=== PATIENT | male | born 1985 | race Caucasian/White ===

== ENCOUNTER 2018-03-20 10:55 | Inpatient (IN) ==
[2018-03-20] MEDS ORDERED: Ondansetron 4 MG/2 ML VIAL IVP ONE ×3 (11:06→14:39)
--- NOTE | 2018-03-20 11:20 | Emergency Department Note ---
Disposition Clinical Impression: Diaphoresis Abdominal pain Qualifiers: Abdominal location: unspecified location Qualified Code(s): R10.9 - Unspecified abdominal pain Nausea and vomiting Qualifiers: Vomiting type: unspecified Vomiting Intractability: unspecified Qualified Code( s): R11.2 - Nausea with vomiting, unspecified Chest pain Qualifiers: Chest pain type: unspecified Qualified Code(s): R07.9 - Chest pain, unspecified Disposition: Admitted As Inpatient Condition: Fair General Adult HPI - General Chief complaint: ED Abdominal Pain Stated complaint: tick bite on genitals Time Seen by Provider: 03/20/18 11:07 Source: patient Limitations: no limitations - History of Present Illness Pain Scale: 0 - Related Data Home Medications Medication Instructions Recorded Confirmed Doxycycline Hyclate [Doxycycline 100 mg PO BID 03/20/18 03/20/18 Hyclate] Lisinopril [Zestril] 10 mg PO DAILY 03/20/18 03/20/18 Naltrexone Microspheres [Vivitrol] 1 each IJ QMONTH 03/20/18 03/20/18 Pantoprazole Sodium [Protonix] 40 mg PO DAILY 03/20/18 03/20/18 Sertraline [Zoloft] 50 mg PO DAILY 03/20/18 03/20/18 Allergies Allergy/AdvReac Type Severity Reaction Status Date / Time promethazine [From Phenergan] AdvReac Anxiety Verified 03/20/18 15:25 Past Medical History - Past Medical History Medical history: Reports: non-contributory, hypertension Surgical history: Reports: other (Patient has had a previous neck fracture with cadaver bone placed in C6.) Psychiatric history: Reports: anxiety, depression - Social History Smoking Status: Current every day smoker Smokeless Tobacco Status: No Alcohol use: Reports: heavy Drug use: Reports: marijuana, prescription drug abuse Physical Exam - General Limitations: no limitations General appearance: alert, in no apparent distress Course Vital Signs Temperature 97.5 F L 03/20/18 10:59 Pulse Rate 70 03/20/18 10:59 Respiratory Rate 18 03/20/18 10:59 Blood Pressure 129/106 03/20/18 10:59 O2 Sat by Pulse Oximetry 99 03/20/18 10:59 Temperature 98.4 F 03/20/18 17:12 Pulse Rate 63 03/20/18 17:12 Respiratory Rate 16 03/20/18 17:12 Blood Pressure 136/79 03/20/18 17:12 O2 Sat by Pulse Oximetry 94 03/20/18 17:35 Oxygen Delivery Oxygen Delivery Room Air Medical Decision Making - Lab Data Result diagrams: 03/20/18 11:40 03/20/18 11:40 Lab Results 03/20/18 03/20/18 03/20/18 Range/Units 11:40 11:40 11:40 WBC 18.5 H (4.3-11.1) K/mcL RBC 4.48 (4.19-5.50) M/mcL Hgb 15.4 (12.9-16.9) g/dL Hct 42.5 (37.5-50.1) % MCV 94.9 (83.0-100.0) fL MCH 34.4 H (28.0-33.3) pg MCHC 36.2 H (31.6-35.5) g/dL RDW 11.7 (11.5-14.5) % Plt Count 300 (140-400) K/mcL MPV 9.1 L (9.4-12.4) fL Immature Gran % 0.5 (0-4) % Seg Neutrophils % 88.3 % Lymphocytes % 5.9 % Monocytes % 4.6 % Eosinophils % 0.4 % Basophils % 0.3 % Neutrophils # 16.3 H (1.6-8.9) K/mcL Lymphocytes # 1.1 (0.6-4.6) K/mcL Monocytes # 0.9 (0.0-1.3) K/mcL Eosinophils # 0.1 (0.0-0.6) K/mcL Basophils # 0.1 (0.0-0.2) K/mcL Nucleated RBCs/100 WBC 0.1 H (0) /100 WBC Sodium 139 (136-145) mEq/L Potassium 4.0 (3.5-5.1) mEq/L Chloride 106 (98-107) mEq/L Carbon Dioxide 23 (23-29) mEq/L BUN 16 (6-20) mg/dL Creatinine 0.76 (0.70-1.30) mg/dL Est GFR ( Amer) > 60 (> 60) Est GFR (Non-Af Amer) > 60 (> 60) BUN/Creatinine Ratio 21 (6-26) Glucose 127 H (70-105) mg/dL Calculated Osmolality 291 (280-300) Lactic Acid 1.7 (0.5-2.2) mmol/L Calcium 10.0 (8.6-10.3) mg/dL Total Bilirubin (0.3-1.0) mg/dL Direct Bilirubin (0.0-0.2) mg/dL Indirect Bilirubin (0.0-1.2) mg/dL AST (13-39) Units/L ALT (7-52) Units/L Alkaline Phosphatase (34-104) Units/L Troponin I < 0.03 (< 0.04) ng/mL Serum Total Protein (6.4-8.9) g/dL Albumin (3.5-5.7) g/dL Globulin (2.4-3.5) g/dL Albumin/Globulin Ratio (1.1-2.2) Lipase (11-82) Units/L 05//18 Range/Units 11:40 WBC (4.3-11.1) K/mcL RBC (4.19-5.50) M/mcL Hgb (12.9-16.9) g/dL Hct (37.5-50.1) % MCV (83.0-100.0) fL MCH (28.0-33.3) pg MCHC (31.6-35.5) g/dL RDW (11.5-14.5) % Plt Count (140-400) K/mcL MPV (9.4-12.4) fL Immature Gran % (0-4) % Seg Neutrophils % % Lymphocytes % % Monocytes % % Eosinophils % % Basophils % % Neutrophils # (1.6-8.9) K/mcL Lymphocytes # (0.6-4.6) K/mcL Monocytes # (0.0-1.3) K/mcL Eosinophils # (0.0-0.6) K/mcL Basophils # (0.0-0.2) K/mcL Nucleated RBCs/100 WBC (0) /100 WBC Sodium (136-145) mEq/L Potassium (3.5-5.1) mEq/L Chloride (98-107) mEq/L Carbon Dioxide (23-29) mEq/L BUN (6-20) mg/dL Creatinine (0.70-1.30) mg/dL Est GFR ( Amer) (> 60) Est GFR (Non-Af Amer) (> 60) BUN/Creatinine Ratio (6-26) Glucose (70-105) mg/dL Calculated Osmolality (280-300) Lactic Acid (0.5-2.2) mmol/L Calcium (8.6-10.3) mg/dL Total Bilirubin 0.4 (0.3-1.0) mg/dL Direct Bilirubin 0.0 (0.0-0.2) mg/dL Indirect Bilirubin 0.4 (0.0-1.2) mg/dL AST 16 (13-39) Units/L ALT 12 (7-52) Units/L Alkaline Phosphatase 81 (34-104) Units/L Troponin I (< 0.04) ng/mL Serum Total Protein 7.8 (6.4-8.9) g/dL Albumin 4.9 (3.5-5.7) g/dL Globulin 2.9 (2.4-3.5) g/dL Albumin/Globulin Ratio 1.7 (1.1-2.2) Lipase 11 (11-82) Units/L Attestation Statement - Attestation Attestation: I examined this patient and my medical decision-making was reviewed with the [employer]/PA/Advanced Practice Nurse/Resident Physician. I agree with the documented findings, disposition and treatment plan as described except to the extent set forth below. I did see the patient spoke with him and reviewed the previous record. Does have a history of overdose however set the patient said he has not tried to end his life in the past. Has not used any substances or alcohol the last 40 days. He does have vomiting as well as chest pain and abdominal pain and we will pursue further evaluation with laboratory evaluation as well as CT scanning. Patient is initially seemed cyanotic but at this point oxygen saturation 98% on room air. Patient has had several episodes of emesis and see evidence arrived 1120 I did review the patient's EKG showing sinus bradycardia with a rate of 47 bpm and evidence of some possible early re-pole and prominent T waves across the anterior precordium and we are waiting on results of our testing for electrolytes, troponin as well as CTA imaging of the chest and abdomen and pelvis. Patient receiving IV fluids. 1153 The patient did have leukocytosis, imaging is negative, he still looks poor and does have significant abdominal pain as well as diaphoresis. Patient received Protonix IV as well patient will be admitted. He has been seen by the hospitalist. [id number]
[2018-03-20] MEDS ORDERED: 0.9 % Sodium Chloride 1,000 ML IVC ONE (11:26)
[2018-03-20] MEDS ORDERED: Isovue-370 500 ML INFUS..BTL IV ONE (11:27)
--- NOTE | 2018-03-20 11:33 | Emergency Department Note ---
Disposition Clinical Impression: Diaphoresis Abdominal pain Qualifiers: Abdominal location: generalized Qualified Code(s): R10.84 - Generalized abdominal pain Nausea and vomiting Qualifiers: Vomiting type: cyclical vomiting Vomiting Intractability: intractable Qualified Code(s): G43.A1 - Cyclical vomiting, intractable Chest pain Qualifiers: Chest pain type: unspecified Qualified Code(s): R07.9 - Chest pain, unspecified Disposition: Admitted As Inpatient Condition: Fair Time of Disposition: 14:40 General Adult HPI - General Chief complaint: ED Abdominal Pain Stated complaint: tick bite on genitals Time Seen by Provider: 03/20/18 11:07 Source: patient Limitations: no limitations Nursing Notes Reviewed: Yes Vital Signs Reviewed: Yes - History of Present Illness HPI Narrative: Patient is a 32-year-old male that presents to the emergency department for nausea vomiting, chest pain and abdominal pain. Patient states that he has had multiple tick bites on his left leg, penis and shoulders. Patient states that his first tick bite was approximately 2 weeks ago. States that he has been on some sort of antibiotic that starts with a "D" but is unsure the exact name. Patient states that he has not been feeling well over the past couple weeks however his acute symptoms started earlier today and have been getting worse. States that he woke up feeling nauseated and sweaty. Patient also reports that he has been having abdominal pain and chest pain associated with his symptoms. He states that his chest pain is located in the center of his chest. Denies any radiation of his chest pain. Patient does report shortness of breath, nausea and vomiting associated with his chest pain. He states that the pain began this morning.Patient describes the pain as pressure. Patient denies recent drug use. Pain Scale: 0 - Related Data Home Medications Medication Instructions Recorded Confirmed Doxycycline Hyclate [Doxycycline 100 mg PO BID 03/20/18 03/20/18 Hyclate] Lisinopril [Zestril] 10 mg PO DAILY 03/20/18 03/20/18 Naltrexone Microspheres [Vivitrol] 1 each IJ QMONTH 03/20/18 03/20/18 Pantoprazole Sodium [Protonix] 40 mg PO DAILY 03/20/18 03/20/18 Sertraline [Zoloft] 50 mg PO DAILY 03/20/18 03/20/18 Allergies Allergy/AdvReac Type Severity Reaction Status Date / Time promethazine [From Phenergan] AdvReac Anxiety Verified 03/20/18 15:25 All systems ED: reviewed and negative except as stated. Constitutional: Reports: other (diaph) Cardiovascular: Reports: chest pain Respiratory: Reports: dyspnea Gastrointestinal: Reports: abdominal pain, nausea, vomiting Past Medical History - Past Medical History Medical history: Reports: non-contributory, hypertension Surgical history: Reports: other (Patient has had a previous neck fracture with cadaver bone placed in C6.) Psychiatric history: Reports: anxiety, depression - Social History Smoking Status: Current every day smoker Smokeless Tobacco Status: No Alcohol use: Reports: heavy Drug use: Reports: marijuana, prescription drug abuse Physical Exam - General Limitations: no limitations General appearance: alert, in distress, other (diaphoretic) - Head Head exam: atraumatic, normocephalic - Eye Eye exam: Present: normal appearance, EOMI - Neck Neck exam: Present: normal inspection, full ROM, trachea midline - Respiratory Respiratory exam: Present: normal lung sounds bilaterally. Absent: respiratory distress, wheezes - Cardiovascular Cardiovascular exam: Present: regular rate, normal rhythm, normal heart sounds, +S1, +S2 - Abdominal Exam Abdominal exam: Present: soft, Non-Tender, normal bowel sounds. Absent: distention, guarding, rigidity - Male exam: Present: normal testicular lie, circumcised, other (Mild swelling of the penis. Appears to be a lesion on the shat of the penis) - Extremities Exam Extremities exam: Present: other (Appears to have multiple small scabs on his upper thigh) - Back Exam Back exam: Present: normal inspection, full ROM - Neurological Exam Neurological exam: Present: alert, oriented X3 - Psychiatric Psychiatric exam: Present: normal affect, normal mood - Skin Skin exam: Present: warm, dry, intact Course Vital Signs Temperature 97.5 F L 03/20/18 10:59 Pulse Rate 70 03/20/18 10:59 Respiratory Rate 18 03/20/18 10:59 Blood Pressure 129/106 03/20/18 10:59 O2 Sat by Pulse Oximetry 99 03/20/18 10:59 Temperature 98.3 F 03/20/18 19:27 Pulse Rate 57 03/20/18 19:27 Respiratory Rate 14 03/20/18 19:27 Blood Pressure 129/71 03/20/18 19:27 O2 Sat by Pulse Oximetry 99 03/20/18 19:27 Oxygen Delivery Oxygen Delivery Room Air Medical Decision Making - MDM Narrative Medical decision making narrative: Due to the patient presenting with chest pain, abdominal pain, nausea and vomiting there is concern for possible intra-abdominal vs possible cardiac related pathology we will obtain basic laboratory testing including a CBC, BMP, troponin, EKG as well as CTAs of the chest abdomen and pelvis. Patient does have an elevated white count of 18.5. The remainder of his laboratory testing was unremarkable. The CT scans of the abdomen and pelvis did not show any acute findings at this time. However due to the patient still having significant abdominal pain, nausea and vomiting as well as having a generalized ill appearance I feel that it is most appropriate that the patient be admitted to the hospital for further evaluation and management. I called and spoke with the admitting hospitalist Tremayne spann who has accepted the patient to their service. The patient will be admitted to the hospital at this time for further evaluation and management. - Medical Records Medical records reviewed: Yes I reviewed the patient's medical records. - Lab Data Lab results reviewed: Yes I reviewed the patient's lab results. Result diagrams: 03/20/18 11:40 03/20/18 11:40 Lab Results 03/20/18 03/20/18 03/20/18 Range/Units 11:40 11:40 11:40 WBC 18.5 H (4.3-11.1) K/mcL RBC 4.48 (4.19-5.50) M/mcL Hgb 15.4 (12.9-16.9) g/dL Hct 42.5 (37.5-50.1) % MCV 94.9 (83.0-100.0) fL MCH 34.4 H (28.0-33.3) pg MCHC 36.2 H (31.6-35.5) g/dL RDW 11.7 (11.5-14.5) % Plt Count 300 (140-400) K/mcL MPV 9.1 L (9.4-12.4) fL Immature Gran % 0.5 (0-4) % Seg Neutrophils % 88.3 % Lymphocytes % 5.9 % Monocytes % 4.6 % Eosinophils % 0.4 % Basophils % 0.3 % Neutrophils # 16.3 H (1.6-8.9) K/mcL Lymphocytes # 1.1 (0.6-4.6) K/mcL Monocytes # 0.9 (0.0-1.3) K/mcL Eosinophils # 0.1 (0.0-0.6) K/mcL Basophils # 0.1 (0.0-0.2) K/mcL Nucleated RBCs/100 WBC 0.1 H (0) /100 WBC Sodium 139 (136-145) mEq/L Potassium 4.0 (3.5-5.1) mEq/L Chloride 106 (98-107) mEq/L Carbon Dioxide 23 (23-29) mEq/L BUN 16 (6-20) mg/dL Creatinine 0.76 (0.70-1.30) mg/dL Est GFR ( Amer) > 60 (> 60) Est GFR (Non-Af Amer) > 60 (> 60) BUN/Creatinine Ratio 21 (6-26) Glucose 127 H (70-105) mg/dL Calculated Osmolality 291 (280-300) Lactic Acid 1.7 (0.5-2.2) mmol/L Calcium 10.0 (8.6-10.3) mg/dL Total Bilirubin (0.3-1.0) mg/dL Direct Bilirubin (0.0-0.2) mg/dL Indirect Bilirubin (0.0-1.2) mg/dL AST (13-39) Units/L ALT (7-52) Units/L Alkaline Phosphatase (34-104) Units/L Troponin I < 0.03 (< 0.04) ng/mL Serum Total Protein (6.4-8.9) g/dL Albumin (3.5-5.7) g/dL Globulin (2.4-3.5) g/dL Albumin/Globulin Ratio (1.1-2.2) Lipase (11-82) Units/L 03/20/18 Range/Units 11:40 WBC (4.3-11.1) K/mcL RBC (4.19-5.50) M/mcL Hgb (12.9-16.9) g/dL Hct (37.5-50.1) % MCV (83.0-100.0) fL MCH (28.0-33.3) pg MCHC (31.6-35.5) g/dL RDW (11.5-14.5) % Plt Count (140-400) K/mcL MPV (9.4-12.4) fL Immature Gran % (0-4) % Seg Neutrophils % % Lymphocytes % % Monocytes % % Eosinophils % % Basophils % % Neutrophils # (1.6-8.9) K/mcL Lymphocytes # (0.6-4.6) K/mcL Monocytes # (0.0-1.3) K/mcL Eosinophils # (0.0-0.6) K/mcL Basophils # (0.0-0.2) K/mcL Nucleated RBCs/100 WBC (0) /100 WBC Sodium (136-145) mEq/L Potassium (3.5-5.1) mEq/L Chloride (98-107) mEq/L Carbon Dioxide (23-29) mEq/L BUN (6-20) mg/dL Creatinine (0.70-1.30) mg/dL Est GFR ( Amer) (> 60) Est GFR (Non-Af Amer) (> 60) BUN/Creatinine Ratio (6-26) Glucose (70-105) mg/dL Calculated Osmolality (280-300) Lactic Acid (0.5-2.2) mmol/L Calcium (8.6-10.3) mg/dL Total Bilirubin 0.4 (0.3-1.0) mg/dL Direct Bilirubin 0.0 (0.0-0.2) mg/dL Indirect Bilirubin 0.4 (0.0-1.2) mg/dL AST 16 (13-39) Units/L ALT 12 (7-52) Units/L Alkaline Phosphatase 81 (34-104) Units/L Troponin I (< 0.04) ng/mL Serum Total Protein 7.8 (6.4-8.9) g/dL Albumin 4.9 (3.5-5.7) g/dL Globulin 2.9 (2.4-3.5) g/dL Albumin/Globulin Ratio 1.7 (1.1-2.2) Lipase 11 (11-82) Units/L - Radiology Data Radiology results reviewed: Yes I reviewed the patient's radiology results. Abdomen/Pelvis CTA 03/20/18 11:27 IMPRESSION: No evidence of acute pulmonary embolism or acute aortic disease in the chest or abdomen. No evidence of aneurysm or dissection. No evidence of other acute abnormalities in the chest, abdomen or pelvis. D/ / 03/20/2018 13:31:26 Aline Mustafa MD / angie Interpreting Provider: Aline Mustafa MD Chest CTA 03/20/18 11:27 IMPRESSION: No evidence of acute pulmonary embolism or acute aortic disease in the chest or abdomen. No evidence of aneurysm or dissection. No evidence of other acute abnormalities in the chest, abdomen or pelvis. D/ / 03/20/2018 13:31:26 Aline Mustafa MD / angie Interpreting Provider: Aline Mustafa MD - EKG Data EKG #1 EKG attestation: Yes I reviewed and interpreted this EKG. EKG results narrative: EKG showed a sinus bradycardia at a rate of 47 bpm, SD interval 138, QRS duration of 110, QTc of 420 with a normal axis. There is evidence of incomplete right bundle. No Evidence of stemi on EKG. There are some peaked T waves in lead V3, V4 and V5. This is compared to previous EKG on 01/01/18 which showed a sinus tachycardia at rate of 117 bpm.
[2018-03-20 11:59] LABS: Basophils # 0.1 K/mcL (0.0-0.2); Basophils % 0.3 %; Eosinophils # 0.1 K/mcL (0.0-0.6); Eosinophils % 0.4 %; Hematocrit 42.5 % (37.5-50.1); Hemoglobin 15.4 g/dL (12.9-16.9); Immature Granulocytes % 0.5 % (0-4); Lymphocytes # 1.1 K/mcL (0.6-4.6); Lymphocytes % 5.9 %; Mean Corpuscular HGB Conc 36.2 g/dL (31.6-35.5); Mean Corpuscular Hemoglobin 34.4 pg (28.0-33.3); Mean Corpuscular Volume 94.9 fL (83.0-100.0); Mean Platelet Volume 9.1 fL (9.4-12.4); Monocytes # 0.9 K/mcL (0.0-1.3); Monocytes % 4.6 %; Neutrophils # 16.3 K/mcL (1.6-8.9); Nucleated Red Blood Cells 0.1 /100 WBC (0); Platelet Count 300 K/mcL (140-400); Red Blood Count 4.48 M/mcL (4.19-5.50); Red Cell Distribution Width 11.7 % (11.5-14.5); Segmented Neutrophils % 88.3 %
[2018-03-20 12:15] LABS: Troponin I < 0.03 ng/mL (< 0.04)
[2018-03-20 12:21] LABS: BUN/Creatinine Ratio 21 (6-26); Blood Urea Nitrogen 16 mg/dL (6-20); Carbon Dioxide 23 mEq/L (23-29); Chloride 106 mEq/L (98-107); Glucose 127 mg/dL (70-105); Osmolality,Calculated 291 (280-300); Sodium 139 mEq/L (136-145); eGFR For African Americans > 60 (> 60); eGFR For Non-African Americans > 60 (> 60)
[2018-03-20 12:22] LABS: Albumin 4.9 g/dL (3.5-5.7); Albumin/Globulin Ratio 1.7 (1.1-2.2); Bilirubin,Total 0.4 mg/dL (0.3-1.0); Globulin 2.9 g/dL (2.4-3.5); Total Protein 7.8 g/dL (6.4-8.9)
[2018-03-20 12:46] LABS: Bilirubin,Indirect 0.4 mg/dL (0.0-1.2)
[2018-03-20] MEDS ORDERED: Ondansetron 4 MG/2 ML VIAL ONE (12:54)
[2018-03-20] MEDS ORDERED: Hyoscyamine SL 0.125 MG TAB.SUBL SL ONE (14:42)
[2018-03-20] MEDS ORDERED: Pantoprazole 40 MG VIAL IVP ONE (15:57)
[2018-03-20] MEDS ORDERED: [UNRECOGNIZED DRUG - OTHER] IM SCH (16:45)
[2018-03-20] MEDS: cefTRIAXone 2,000 MG in Water for inj. (sterile) 20 ML 20 ML IVP SCH (17:25)
[2018-03-20] MEDS: 0.9 % Sodium Chloride 1,000 ML IVC SCH (17:26)
[2018-03-20] MEDS ORDERED: Naloxone 0.4 MG/ML INJ IVP PRN (18:57)
[2018-03-20] MEDS ORDERED: Metoclopramide 10 MG/2 ML VIAL IVP ONE (19:00)
--- NOTE | 2018-03-20 19:21 | Internal Med History&Physical ---
<SonnyTremayne Ramirez - Last Filed: 03/20/18 21:25> Date of Encounter: 03/20/18 Time of Encounter: 16:30 Internal Medicine - H&P: HPI Chief complaint: Abdominal pain, N/V, fever, CP Admitted From: Emergency Dept Plans for Post Hospital Care: Home History of present illness: Mr. Bynum is a 32 year old male w/PMH of HTN, anxiety, depression, and hx of prescription drug abuse presents from the ED w/CC of abdominal pain, nausea, vomiting, fever, chills, muscle aches, headache, night sweats, and dizziness for the past two weeks that have become progressively worse. Pt. reports that [place] and has 10-20 tick bites on his back, shoulder, bilateral legs, and underside of his penis. No alleviating factors. PT. 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 Pt. denies recent drug use and states that is a recovering addict of prescription drug abuse and states that he cannot have any opioids or pain relievers other than Tylenol or Ibuprofen. Currently takes Vivitrol shots monthly. Pt. reports SOB, weakness, and fatigue but denies changes in vision, unusual bleeding, changes in vision, unusual rashes, cough, chest congestion, diarrhea, constipation, pre-syncope, or syncope. Past Med Surg Social Fam HX - Past Medical History Source: patient, old records reviewed, obtained from family Medical history: hypertension Psychiatric history: anxiety, depression - Past Surgical History Surgical History: other (Patient has had a previous neck fracture with cadaver bone placed in C6.) - Social History Smoking Status: Current every day smoker Packs per day: 1 PPD Smokeless Tobacco Status: No Alcohol use: heavy Drug use: marijuana, prescription drug abuse (Hx of addiction. Currently takes monthly Vivitrol injections.) Current living situation: Home, With Family Activity Level: Independent ambulation Recent Out of Country Travel Within the Last 8 Weeks: No Exposure or Possible Exposure to Illness During Travel: No - Family History Mother Race: Family Member Ethnicity: Non- Living Status: Still Living Hx Family Cardiac Disorders: Yes (CVA) Hx Family Neurologic Disorders: Yes (CVA) Hx Family Psychosocial Disorders: Yes (Depression) Father Race: Family Member Ethnicity: Non- Living Status: Still Living Hx Family Cardiac Disorders: Yes (HTN) Brother Race: Family Member Ethnicity: Non- Living Status: Still Living Hx Family Psychosocial Disorders: Yes (Depression) Sister Race: Family Member Ethnicity: Non- Living Status: Still Living Hx Family Medical Disorders: No Internal Medicine - H&P: Meds Doxycycline Hyclate [Doxycycline Hyclate] 100 mg PO BID 03/20/18 [History] Lisinopril [Zestril] 10 mg PO DAILY 03/20/18 [History] Naltrexone Microspheres [Vivitrol] 1 each IJ QMONTH 03/20/18 [History] Pantoprazole Sodium [Protonix] 40 mg PO DAILY 03/20/18 [History] Sertraline [Zoloft] 50 mg PO DAILY 03/20/18 [History] 3 Allergy/AdvReac Type Severity Reaction Status Date / Time promethazine [From Phenergan] AdvReac Anxiety Verified 03/20/18 15:25 All Systems PM: A 10-system review of systems was performed and is negative for pertinent findings except as documented above in the HPI. - Constitutional Constitutional: as per HPI, chills, fatigue, fever(s), night sweats, weakness - EENT Eyes: no change in vision, no discharge, no pain, no photophobia Ears: no ear discharge, no ear pain, no tinnitus Nose, mouth and throat: no dysphagia, no nasal discharge, no neck pain, no sore throat - Breasts Breasts: as per HPI - Cardiovascular Cardiovascular ROS IM: as per HPI, chest pain, dyspnea, dyspnea on exertion, no diaphoresis, no lightheadedness, no palpitations, no syncope - Respiratory Respiratory: as per HPI, dyspnea, dyspnea on exertion, no cough, no wheezing, no excessive phlegm production - Gastrointestinal Gastrointestinal: as per HPI, abdominal pain, nausea, vomiting, no diarrhea, no hematemesis, no hematochezia, no melena - Genitourinary Genitourinary ROS male: as per HPI - Musculoskeletal Musculoskeletal ROS IM: as per HPI, arthralgias, muscle weakness, no numbness, no tingling - Integumentary Integumentary IM: as per HPI, erythema (Around multiple tick bite sites), sores (Multiple tick bites on back, shoulder, bilateral legs, and underside of penis) , no rash, no unusual bruising - Neurological Neurological ROS: as per HPI, dizziness, weakness, no confusion, no convulsions , no focal weakness, no numbness, no tingling, no tremor(s) - Psychiatric Psychiatric: as per HPI, anxiety, depression - Endocrine Endocrine IM: as per HPI - Hematologic/Lymphatic Hematologic/Lymphatic: no easy bruising - Allergic/Immunologic Allergic/Immunologic: as per HPI - Constitutional Vitals: Temp Pulse Resp BP Pulse Ox 98.4 F 63 16 136/79 94 03/20/18 17:12 03/20/18 17:12 03/20/18 17:12 03/20/18 17:12 03/20/18 17:35 General appearance: Present: cooperative, A&O X 3, severe distress (N/V/Fever/ Chills), underweight, answers questions appropriately - Head Head exam: Present: atraumatic, normocephalic - Eye Eye exam: Present: PERRL, conjuntiva pink, sclera anicteric Pupils: Present: PERRL - ENT ENT exam: Present: normal exam - Neck Neck exam general surgery: Present: normal inspection, supple, trachea midline. Absent: lymphadenopathy - Respiratory Respiratory exam: Present: CTAB. Absent: accessory muscle use, rales, rhonchi, wheezes - Cardiovascular Cardiovascular exam: Present: bradycardia - GI/Abdominal GI/Abdominal exam: Present: normal bowel sounds, soft, tenderness, no peritoneal signs. Absent: distended - Rectal Rectal exam: Present: deferred - Additional comments: exam deferred. - Extremities Exam Extremities exam: Present: warm, radial pulses palpable and symmetrical. Absent : calf tenderness, cyanotic, pedal edema - Back Exam Back exam: Present: normal inspection - Neurological Exam Neurological exam: Present: CN II-XII intact, oriented X3, no focal deficits. Absent: pronater drift, facial droop, speech deficit - Psychiatric Psychiatric exam: Present: anxious - Skin Skin exam: Present: dry, erythema (Around multiple tick bite sites on back, shoulder, bilateral legs, and underside of penis), intact Internal Med - H&P Results - Labs CBC & Chem 7: 03/20/18 11:40 03/20/18 11:40 - EKG Data EKG shows normal: sinus rhythm Rate: bradycardia - EKG Data EKG comments: 03/20/18 19:38 EKG dated 01/01/18 shows sinus tachycardia with intraventricular conduction delay. EKG dated 03/20/18 shows sinus bradycardia with possible right ventricular conduction delay and possible left ventricular hypertrophy. - Diagnostic Studies Other Images Additional comments: Impressions Abdomen/Pelvis CTA 03/20/18 11:27 IMPRESSION: No evidence of acute pulmonary embolism or acute aortic disease in the chest or abdomen. No evidence of aneurysm or dissection. No evidence of other acute abnormalities in the chest, abdomen or pelvis. D/ / 03/20/2018 13:31:26 Aline Mustafa MD / angie Interpreting Provider: Aline Mustafa MD Chest CTA 03/20/18 11:27 IMPRESSION: No evidence of acute pulmonary embolism or acute aortic disease in the chest or abdomen. No evidence of aneurysm or dissection. No evidence of other acute abnormalities in the chest, abdomen or pelvis. D/ / 03/20/2018 13:31:26 Aline Mustafa MD / angie Interpreting Provider: Aline Mustafa MD - Assessment and plan (1) Abdominal pain Current Visit: Yes Status: Acute Assessment and plan: Acute abdominal pain accompanied by severe intractable nausea and vomiting. IVP Zofran Q4HR ordered. IVP Reglan 10 mg IVP Q6HR added d/t intractable N/V. Pt. states Reglan is helping. NPO w/ice chips only status for now. Will advance diet as tolerated once N/V under control. Monitor I&O. Alternating Tylenol 650 mg Q6HR PRN w/Motrin 600 mg 600 mg Q6HR PRN for fever and pain. Pt. not to have opioids or narcotic pain medications d/t addiction to prescription pain medications that he is currently taking monthly Vivitrol injections for. Qualifiers: Abdominal location: generalized Qualified Code(s): R10.84 - Generalized abdominal pain (2) Nausea and vomiting Current Visit: Yes Status: Acute Assessment and plan: Acute N/V for the past several days. Pt. and SO report that pt. was extremely nauseous w/vomiting 2 years ago w/Lyme dx. IVP Zofran started in ED w/little resolution. Reglan 10 mg IVP once ordered which patient states is helping. We will continue Reglan 10 mg IVP every 6 hours scheduled due to extreme nausea and vomiting. Zoloft held for now due to contraindicated interaction w/Reglan. Monitor I&O. IV 0.9 NS @ 125/HR d/t N/V over past week and possible dehydration. Qualifiers: Vomiting type: cyclical vomiting Vomiting Intractability: intractable Qualified Code(s): G43.A1 - Cyclical vomiting, intractable (3) Chest pain Current Visit: Yes Status: Acute Assessment and plan: Acute CP that pt. reports as generalized. Initial troponin <0.03. Will trend. Pt. placed on continuous telemetry for monitoring. Denies cardiac hx and no familial hx of [place]. Will monitor pt. and f/u labs. Qualifiers: Chest pain type: unspecified Qualified Code(s): R07.9 - Chest pain, unspecified (4) Fever with chills Current Visit: Yes Status: Acute Assessment and plan: Acute fever with chills. Tylenol 650 mg Q6HR PRN to be alternated w/Ibuprofen 600 mg Q6HR PRN for fever control. Rectal Tylenol ordered if pt. cannot keep PO Tylenol down d/t N/V. (5) HTN (hypertension) Current Visit: Yes Status: Chronic Assessment and plan: Hx of chronic HTN. Monitor pt. and VS. Continue pts. Lisinopril. Qualifiers: Hypertension type: essential hypertension Qualified Code(s): I10 - Essential (primary) hypertension (6) Hx of Lyme disease Current Visit: Yes Status: Resolved Assessment and plan: Pt. reports being diagnosed with Lyme disease 2 years ago. States current symptoms are identical to when he had Lyme disease previously. Lyme disease total antibody ordered stat. Monitor for results. (7) DVT prophylaxis Current Visit: Yes Status: Acute Assessment and plan: Lovenox 40 mg SQ 0600 daily for DVT prophylaxis. Monitor pt. for signs of bleeding. (8) Suspected Lyme disease Current Visit: Yes Status: Acute Assessment and plan: Acute suspected Lyme disease w/pt. reporting >20 tick bites over the past several weeks. On exam, pt. has 10-20 tick bite sites that are in various stages of healing on his back, right shoulder, bilateral legs, and underside of his penis. Pt. also reports he was diagnosed w/Lyme disease approximately two years ago w/same sx. Lyme disease total antibody ordered stat. Current WBC 18.5 on admission. Pt. does not currently meet sepsis criteria but will be monitored closely. Pt. started on IVPB ceftriaxone 2000 mg daily per Lyme disease treatment recommendations. IVP Zofran 4 mg every 4 when necessary with Reglan 10 mg IVP every 6 hours added for control of intractable nausea and vomiting. PO Tylenol 650 mg Q6HR PRN to be alternated w/PO Motrin 600 mg Q6HR PRN for fever control. Tylenol RC 650 mg Q6HR PRN ordered if pt. is unable to keep PO Tylenol down d/t N/V. Pt. discussed w/Dr. Coe who agrees w/plan of care. Pt. is high risk for further morbidity and infection d/t multiple tick bites, current sx, hx of previous Lyme disease, and risk factors. Inpatient - Time Spent With Patient Total time spent is greater than 50% in coordination of care (as documented) at patient's floor/unit and/or counseling patient: Greater than 35 minutes <Jonah Coe P - Last Filed: 03/20/18 21:43> Date of Encounter: 03/20/18 Internal Medicine - H&P: HPI History of present illness: Mr. Bynum is a 32 year old male All Systems PM: A 10-system review of systems was performed and is negative for pertinent findings except as documented above in the HPI. - Constitutional Vitals: Temp Pulse Resp BP Pulse Ox 98.3 F 57 14 129/71 99 03/20/18 19:27 03/20/18 19:27 03/20/18 19:27 03/20/18 19:27 03/20/18 19:27 Internal Med - H&P Results - Labs CBC & Chem 7: 03/20/18 11:40 03/20/18 11:40 Labs: Cardiac Enzymes 03/20/18 Range/Units 19:55 Troponin I < 0.03 (< 0.04) ng/mL - Attending Attestation I examined this patient and my medical decision-making was reviewed with the Resident Physician. I agree with the documented findings, disposition and treatment plan as described except to the extent set forth below. agree with above - Assessment and plan (1) Abdominal pain Current Visit: Yes Status: Acute Qualifiers: Abdominal location: generalized Qualified Code(s): R10.84 - Generalized abdominal pain (2) Nausea and vomiting Current Visit: Yes Status: Acute Qualifiers: Vomiting type: cyclical vomiting Vomiting Intractability: intractable Qualified Code(s): G43.A1 - Cyclical vomiting, intractable (3) Chest pain Current Visit: Yes Status: Acute Qualifiers: Chest pain type: unspecified Qualified Code(s): R07.9 - Chest pain, unspecified (4) Fever with chills Current Visit: Yes Status: Acute (5) HTN (hypertension) Current Visit: Yes Status: Chronic Qualifiers: Hypertension type: essential hypertension Qualified Code(s): I10 - Essential (primary) hypertension (6) DVT prophylaxis Current Visit: Yes Status: Acute (7) Hx of Lyme disease Current Visit: Yes Status: Resolved (8) Suspected Lyme disease Current Visit: Yes Status: Acute - Time Spent With Patient Total time spent is greater than 50% in coordination of care (as documented) at patient's floor/unit and/or counseling patient:
[2018-03-20] MEDS: Nicotine 14 MG PATCH.TD24 TD SCH (19:56)
[2018-03-20] MEDS: Ondansetron 4 MG/2 ML VIAL IVP SCH (19:57)
[2018-03-20] MEDS ORDERED: Ibuprofen 600 MG TABLET PO PRN (20:32)
[2018-03-20] MEDS ORDERED: Acetaminophen 650 MG RECTAL SUPP RC PRN (20:33)
[2018-03-21] MEDS: Metoclopramide 10 MG/2 ML VIAL IVP SCH ×3 (00:01→11:13)
[2018-03-21] MEDS: Ondansetron 4 MG/2 ML VIAL IVP SCH ×6 (00:01→20:51)
[2018-03-21] MEDS: 0.9 % Sodium Chloride 1,000 ML IVC SCH ×2 (01:35→04:27)
[2018-03-21 01:43] LABS: Alanine Aminotransferase 10 Units/L (7-52); Albumin 4.6 g/dL (3.5-5.7); Albumin/Globulin Ratio 1.5 (1.1-2.2); Alkaline Phosphatase 79 Units/L (34-104); Aspartate Amino Transferase 14 Units/L (13-39); BUN/Creatinine Ratio 16 (6-26); Bilirubin,Total 0.4 mg/dL (0.3-1.0); Blood Urea Nitrogen 10 mg/dL (6-20); Calcium 9.5 mg/dL (8.6-10.3); Carbon Dioxide 22 mEq/L (23-29); Chloride 107 mEq/L (98-107); Chol/HDL Ratio 3.9 (0-4.9); Cholesterol 170 mg/dL (< 200); Glucose 116 mg/dL (70-105); HDL Cholesterol 44 mg/dL (40-59); LDL Cholesterol,Calculated 114 mg/dL (0-99); Magnesium 1.8 mg/dL (1.6-2.6); Osmolality,Calculated 288 (280-300); Sodium 139 mEq/L (136-145); Total Protein 7.6 g/dL (6.4-8.9); Triglycerides 60 mg/dL (< 150); eGFR For African Americans > 60 (> 60); eGFR For Non-African Americans > 60 (> 60)
[2018-03-21 02:49] LABS: Basophils % 0.2 %; Hematocrit 39.9 % (37.5-50.1); Hemoglobin 14.3 g/dL (12.9-16.9); Immature Granulocytes % 0.5 % (0-4); Lymphocytes # 1.4 K/mcL (0.6-4.6); Lymphocytes % 11.4 %; Mean Corpuscular HGB Conc 35.8 g/dL (31.6-35.5); Mean Corpuscular Hemoglobin 34.4 pg (28.0-33.3); Mean Corpuscular Volume 95.9 fL (83.0-100.0); Mean Platelet Volume 9.5 fL (9.4-12.4); Monocytes # 0.8 K/mcL (0.0-1.3); Monocytes % 6.1 %; Platelet Count 331 K/mcL (140-400); Red Blood Count 4.16 M/mcL (4.19-5.50); Segmented Neutrophils % 81.8 %
[2018-03-21] MEDS: *HR* Enoxaparin 40 MG/0.4 ML SYRINGE SQ SCH (05:48)
[2018-03-21] MEDS: Pantoprazole 40 MG VIAL IVP SCH (08:19)
[2018-03-21] MEDS: Nicotine 14 MG PATCH.TD24 TD SCH (08:19)
--- NOTE | 2018-03-21 10:23 | Internal Med Progress Note ---
Date of Encounter: 03/21/18 Time of Encounter: 10:21 - Assessment and plan (1) Abdominal pain Current Visit: Yes Status: Acute Assessment and plan: Intractable abdominal pain Acute abdominal pain accompanied by severe intractable nausea and vomiting. IVP Zofran Q4HR ordered. IVP Reglan 10 mg IVP Q6HR added d/t intractable N/V. Pt. states Reglan is helping. NPO w/ice chips only status for now. Will advance diet as tolerated once N/V under control. Monitor I&O. Alternating Tylenol 650 mg Q6HR PRN w/Motrin 600 mg 600 mg Q6HR PRN for fever and pain. Pt. not to have opioids or narcotic pain medications d/t addiction to prescription pain medications that he is currently taking monthly Vivitrol injections for. - Advance diet as tolerated - Continue Rocephin Qualifiers: Abdominal location: generalized Qualified Code(s): R10.84 - Generalized abdominal pain (2) Fever with chills Current Visit: Yes Status: Acute Assessment and plan: Acute fever with chills. Tylenol 650 mg Q6HR PRN to be alternated w/Ibuprofen 600 mg Q6HR PRN for fever control. Rectal Tylenol ordered if pt. cannot keep PO Tylenol down d/t N/V. - Afebrile currently (3) Suspected Lyme disease Current Visit: Yes Status: Acute Assessment and plan: Acute suspected Lyme disease w/pt. reporting >20 tick bites over the past several weeks. On exam, pt. has 10-20 tick bite sites that are in various stages of healing on his back, right shoulder, bilateral legs, and underside of his penis. Pt. also reports he was diagnosed w/Lyme disease approximately two years ago w/same sx. Lyme disease total antibody ordered stat. Current WBC 18.5 on admission. Pt. does not currently meet sepsis criteria but will be monitored closely. Pt. started on IVPB ceftriaxone 2000 mg daily per Lyme disease treatment recommendations. IVP Zofran 4 mg every 4 when necessary with Reglan 10 mg IVP every 6 hours added for control of intractable nausea and vomiting. PO Tylenol 650 mg Q6HR PRN to be alternated w/PO Motrin 600 mg Q6HR PRN for fever control. Tylenol RC 650 mg Q6HR PRN ordered if pt. is unable to keep PO Tylenol down d/t N/V. Pt. discussed w/Dr. Coe who agrees w/plan of care. Pt. is high risk for further morbidity and infection d/t multiple tick bites, current sx, hx of previous Lyme disease, and risk factors. Inpatient 03/21: currently heart rate RRR, HR occasionally in 50s but there was previous notes that patient had bradycardia. (4) Nausea and vomiting Current Visit: Yes Status: Acute Assessment and plan: Acute N/V for the past several days. Pt. and SO report that pt. was extremely nauseous w/vomiting 2 years ago w/Lyme dx. IVP Zofran started in ED w/little resolution. Reglan 10 mg IVP once ordered which patient states is helping. We will continue Reglan 10 mg IVP every 6 hours scheduled due to extreme nausea and vomiting. Zoloft held for now due to contraindicated interaction w/Reglan. Monitor I&O. IV 0.9 NS @ 125/HR d/t N/V over past week and possible dehydration. Advance diet as tolerated Qualifiers: Vomiting type: cyclical vomiting Vomiting Intractability: intractable Qualified Code(s): G43.A1 - Cyclical vomiting, intractable (5) Chest pain Current Visit: Yes Status: Acute Assessment and plan: Acute CP that pt. reports as generalized. Initial troponin <0.03. Will trend. Pt. placed on continuous telemetry for monitoring. Denies cardiac hx and no familial hx of [place]. Will monitor pt. and f/u labs. Qualifiers: Chest pain type: unspecified Qualified Code(s): R07.9 - Chest pain, unspecified (6) HTN (hypertension) Current Visit: Yes Status: Chronic Assessment and plan: Hx of chronic HTN. Monitor pt. and VS. Continue pts. Lisinopril. Qualifiers: Hypertension type: essential hypertension Qualified Code(s): I10 - Essential (primary) hypertension (7) Hx of Lyme disease Current Visit: Yes Status: Resolved Assessment and plan: Pt. reports being diagnosed with Lyme disease 2 years ago. States current symptoms are identical to when he had Lyme disease previously. Lyme disease total antibody ordered stat. Monitor for results. Escalated therapy to Rocephin, will continue and monitor (8) DVT prophylaxis Current Visit: Yes Status: Acute Assessment and plan: Lovenox 40 mg SQ 0600 daily for DVT prophylaxis. Monitor pt. for signs of bleeding. - Time Spent With Patient Total time spent is greater than 50% in coordination of care (as documented) at patient's floor/unit and/or counseling patient: - Subjective Interval history: Patient appetite still poor. - Constitutional Vitals: Temp Pulse Resp BP Pulse Ox 98.1 F 53 16 128/64 98 03/21/18 06:51 03/21/18 06:51 03/21/18 06:51 03/21/18 06:51 03/21/18 06:51 General appearance: Present: cooperative, A&O X 3, severe distress (N/V/Fever/ Chills), underweight, answers questions appropriately Exam: - Head Head exam: Present: atraumatic, normocephalic - Eye Eye exam: Present: PERRL, conjuntiva pink, sclera anicteric Pupils: Present: PERRL - ENT ENT exam: Present: normal exam - Neck Neck exam general surgery: Present: normal inspection, supple, trachea midline. Absent: lymphadenopathy - Respiratory Respiratory exam: Present: CTAB. Absent: accessory muscle use, rales, rhonchi, wheezes - Cardiovascular Cardiovascular exam: Present: RRR No m/r/g - GI/Abdominal GI/Abdominal exam: Present: normal bowel sounds, soft, mild tenderness, no peritoneal signs. Absent: distended - Rectal Rectal exam: Present: deferred - Additional comments: Single vesicular lesion noted on foreskin of penis without erythema and without purulent discharge - Extremities Exam Extremities exam: Present: warm, radial pulses palpable and symmetrical. Absent : calf tenderness, cyanotic, pedal edema - Back Exam Back exam: Present: normal inspection - Neurological Exam Neurological exam: Present: CN II-XII intact, oriented X3, no focal deficits. Absent: pronater drift, facial droop, speech deficit - Psychiatric Psychiatric exam: Present: anxious - Skin Skin exam: Present: dry, erythema (Around multiple tick bite sites on back, shoulder, bilateral legs, and underside of penis), intact Internal Medicine: Result - Labs CBC & Chem 7: 03/21/18 01:04 03/21/18 01:04 Labs: Short CBC 03/21/18 Range/Units 01:04 WBC 12.2 H (4.3-11.1) K/mcL Hgb 14.3 (12.9-16.9) g/dL Hct 39.9 (37.5-50.1) % Plt Count 331 (140-400) K/mcL Neutrophils # 10.0 H (1.6-8.9) K/mcL BMP 03/21/18 01:04 Sodium 139 Potassium 4.0 Chloride 107 Carbon Dioxide 22 L BUN 10 Creatinine 0.64 L Glucose 116 H Calcium 9.5 Cardiac Enzymes 03/20/18 03/21/18 03/21/18 Range/Units 19:55 01:04 07:15 Troponin I < 0.03 < 0.03 < 0.03 (< 0.04) ng/mL Liver Function 03/21/18 Range/Units 01:04 Total Bilirubin 0.4 (0.3-1.0) mg/dL AST 14 (13-39) Units/L ALT 10 (7-52) Units/L Alkaline Phosphatase 79 (34-104) Units/L Albumin 4.6 (3.5-5.7) g/dL Consult Discharge Plan - Plan Referrals: Eddie Duvall, [facility] [Primary Care Provider] -
[2018-03-21] MEDS ORDERED: 0.9 % Sodium Chloride 1,000 ML IVC ONE (10:42)
[2018-03-21] MEDS ORDERED: 0.9 % Sodium Chloride 1,000 ML IVC SCH (10:45)
[2018-03-21 11:50] LABS: C-Reactive Protein < 5 mg/L (Less than 10); Creatine Kinase 83 Units/L (30-223)
[2018-03-21] MEDS: cefTRIAXone 2,000 MG in Water for inj. (sterile) 20 ML 20 ML IVP SCH (18:25)
[2018-03-21] MEDS: Melatonin 3 MG TABLET PO PRN (20:51)
[2018-03-21] MEDS: Metoclopramide 10 MG/2 ML VIAL IVP PRN (23:55)
[2018-03-22] MEDS: Ondansetron 4 MG/2 ML VIAL IVP SCH ×6 (00:56→22:08)
[2018-03-22 03:56] LABS: Basophils % 0.2 %; Eosinophils % 0.3 %; Hematocrit 37.1 % (37.5-50.1); Immature Granulocytes % 0.8 % (0-4); Lymphocytes # 1.7 K/mcL (0.6-4.6); Lymphocytes % 17.3 %; Mean Corpuscular HGB Conc 34.2 g/dL (31.6-35.5); Mean Corpuscular Hemoglobin 32.8 pg (28.0-33.3); Mean Corpuscular Volume 95.9 fL (83.0-100.0); Mean Platelet Volume 9.3 fL (9.4-12.4); Monocytes # 0.9 K/mcL (0.0-1.3); Monocytes % 8.6 %; Neutrophils # 7.3 K/mcL (1.6-8.9); Platelet Count 300 K/mcL (140-400); Red Blood Count 3.87 M/mcL (4.19-5.50); Segmented Neutrophils % 72.8 %
[2018-03-22 03:57] LABS: Hemoglobin 12.7 g/dL (12.9-16.9)
[2018-03-22 04:14] LABS: Alanine Aminotransferase 11 Units/L (7-52); Albumin 4.4 g/dL (3.5-5.7); Albumin/Globulin Ratio 1.8 (1.1-2.2); Alkaline Phosphatase 65 Units/L (34-104); Aspartate Amino Transferase 14 Units/L (13-39); BUN/Creatinine Ratio 15 (6-26); Bilirubin,Total 0.4 mg/dL (0.3-1.0); Blood Urea Nitrogen 10 mg/dL (6-20); Calcium 9.2 mg/dL (8.6-10.3); Carbon Dioxide 25 mEq/L (23-29); Chloride 104 mEq/L (98-107); Globulin 2.5 g/dL (2.4-3.5); Glucose 117 mg/dL (70-105); Osmolality,Calculated 284 (280-300); Potassium 3.5 mEq/L (3.5-5.1); Sodium 137 mEq/L (136-145); Total Protein 6.9 g/dL (6.4-8.9); eGFR For African Americans > 60 (> 60); eGFR For Non-African Americans > 60 (> 60)
[2018-03-22] MEDS: *HR* Enoxaparin 40 MG/0.4 ML SYRINGE SQ SCH (04:58)
[2018-03-22] MEDS: Metoclopramide 10 MG/2 ML VIAL IVP PRN (06:20)
[2018-03-22] MEDS: Nicotine 14 MG PATCH.TD24 TD SCH (09:04)
[2018-03-22] MEDS: Pantoprazole 40 MG VIAL IVP SCH (09:05)
[2018-03-22] MEDS: Acetaminophen 325 MG TABLET PO PRN (09:14)
--- NOTE | 2018-03-22 12:22 | Internal Med Progress Note ---
Date of Encounter: 03/22/18 Time of Encounter: 12:20 - Assessment and plan (1) Nausea and vomiting Current Visit: Yes Status: Acute Assessment and plan: Intractable N/V several days prior to admission. Patient not tolerating CLD but he says because the broth tastes bad Hold IV fluid and try full liquid diet. Qualifiers: Vomiting type: cyclical vomiting Vomiting Intractability: intractable Qualified Code(s): G43.A1 - Cyclical vomiting, intractable (2) Abdominal pain Current Visit: Yes Status: Acute Assessment and plan: Intractable abdominal pain Acute abdominal pain accompanied by severe intractable nausea and vomiting. IVP Zofran Q4HR ordered. IVP Reglan 10 mg IVP Q6HR added d/t intractable N/V. Pt. states Reglan is helping. NPO w/ice chips only status for now. Will advance diet as tolerated once N/V under control. Monitor I&O. Alternating Tylenol 650 mg Q6HR PRN w/Motrin 600 mg 600 mg Q6HR PRN for fever and pain. Pt. not to have opioids or narcotic pain medications d/t addiction to prescription pain medications that he is currently taking monthly Vivitrol injections for. - Advance diet as tolerated - Continue Rocephin Qualifiers: Abdominal location: generalized Qualified Code(s): R10.84 - Generalized abdominal pain (3) Fever with chills Current Visit: Yes Status: Acute Assessment and plan: Acute fever with chills. Tylenol 650 mg Q6HR PRN to be alternated w/Ibuprofen 600 mg Q6HR PRN for fever control. Rectal Tylenol ordered if pt. cannot keep PO Tylenol down d/t N/V. - Afebrile currently (4) Suspected Lyme disease Current Visit: Yes Status: Acute Assessment and plan: Acute suspected Lyme disease w/pt. reporting >20 tick bites over the past several weeks. On exam, pt. has 10-20 tick bite sites that are in various stages of healing on his back, right shoulder, bilateral legs, and underside of his penis. Pt. also reports he was diagnosed w/Lyme disease approximately two years ago w/same sx. Lyme disease total antibody ordered stat. Current WBC 18.5 on admission. Pt. does not currently meet sepsis criteria but will be monitored closely. Pt. started on IVPB ceftriaxone 2000 mg daily per Lyme disease treatment recommendations. IVP Zofran 4 mg every 4 when necessary with Reglan 10 mg IVP every 6 hours added for control of intractable nausea and vomiting. PO Tylenol 650 mg Q6HR PRN to be alternated w/PO Motrin 600 mg Q6HR PRN for fever control. Tylenol RC 650 mg Q6HR PRN ordered if pt. is unable to keep PO Tylenol down d/t N/V. Pt. discussed w/Dr. Coe who agrees w/plan of care. Pt. is high risk for further morbidity and infection d/t multiple tick bites, current sx, hx of previous Lyme disease, and risk factors. Inpatient 03/21: currently heart rate RRR, HR occasionally in 50s but there was previous notes that patient had bradycardia. (5) Chest pain Current Visit: Yes Status: Acute Assessment and plan: Acute CP that pt. reports as generalized. Troponin negative x3. No acute findings on telemetry. Qualifiers: Chest pain type: unspecified Qualified Code(s): R07.9 - Chest pain, unspecified (6) HTN (hypertension) Current Visit: Yes Status: Chronic Assessment and plan: Hx of chronic HTN. Monitor pt. and VS. Continue pts. Lisinopril. Qualifiers: Hypertension type: essential hypertension Qualified Code(s): I10 - Essential (primary) hypertension (7) Hx of Lyme disease Current Visit: Yes Status: Resolved Assessment and plan: Pt. reports being diagnosed with Lyme disease 2 years ago. States current symptoms are identical to when he had Lyme disease previously. Lyme disease total antibody ordered stat. Monitor for results. Escalated therapy to Rocephin, will continue and monitor (8) DVT prophylaxis Current Visit: Yes Status: Acute Assessment and plan: Lovenox 40 mg SQ 0600 daily for DVT prophylaxis. Monitor pt. for signs of bleeding. - Time Spent With Patient Total time spent is greater than 50% in coordination of care (as documented) at patient's floor/unit and/or counseling patient: - Subjective Interval history: States he hasn't vomited since 4 am this morning. But he is willing to try better foods than clear liquid diet. Denies fevers/chills. Still has some abdominal pain. - Constitutional Vitals: Temp Pulse Resp BP Pulse Ox 98.9 F 49 15 124/73 98 03/22/18 10:19 03/22/18 10:19 03/22/18 10:19 03/22/18 10:19 03/22/18 10:19 General appearance: Present: cooperative, A&O X 3, severe distress (N/V/Fever/ Chills), underweight, answers questions appropriately - Head Head exam: Present: atraumatic, normocephalic - Eye Eye exam: Present: PERRL, conjuntiva pink, sclera anicteric Pupils: Present: PERRL - Neck Neck exam general surgery: Present: supple, trachea midline. Absent: lymphadenopathy - Respiratory Respiratory exam: Present: CTAB. Absent: accessory muscle use, rales, rhonchi, wheezes - Cardiovascular Cardiovascular exam: Present: RRR, +S1, +S2. Absent: diastolic murmur, gallop, rubs, systolic murmur - GI/Abdominal GI/Abdominal exam: Present: normal bowel sounds, soft, no peritoneal signs. Absent: distended, tenderness - Additional comments: Single vesicular lesion on base of penis. No surrounding erythema - Extremities Exam Extremities exam: Present: warm, radial pulses palpable and symmetrical. Absent : calf tenderness, cyanotic, pedal edema - Neurological Exam Neurological exam: Present: CN II-XII intact, oriented X3, no focal deficits. Absent: pronater drift, facial droop, speech deficit - Skin Skin exam: Present: dry, intact Internal Medicine: Result - Labs CBC & Chem 7: 03/22/18 03:28 03/22/18 03:28 Labs: Short CBC 03/22/18 Range/Units 03:28 WBC 10.0 (4.3-11.1) K/mcL Hgb 12.7 L D (12.9-16.9) g/dL Hct 37.1 L (37.5-50.1) % Plt Count 300 (140-400) K/mcL Neutrophils # 7.3 (1.6-8.9) K/mcL BMP 03/22/18 03:28 Sodium 137 Potassium 3.5 Chloride 104 Carbon Dioxide 25 BUN 10 Creatinine 0.65 L Glucose 117 H Calcium 9.2 Liver Function 03/22/18 Range/Units 03:28 Total Bilirubin 0.4 (0.3-1.0) mg/dL AST 14 (13-39) Units/L ALT 11 (7-52) Units/L Alkaline Phosphatase 65 (34-104) Units/L Albumin 4.4 (3.5-5.7) g/dL Consult Discharge Plan - Plan Referrals: Eddie Duvall, JENNIFER [Primary Care Provider] -
[2018-03-22] MEDS: cefTRIAXone 2,000 MG in Water for inj. (sterile) 20 ML 20 ML IVP SCH (18:05)
[2018-03-22] MEDS: Melatonin 3 MG TABLET PO PRN (22:08)
[2018-03-23] MEDS: Ondansetron 4 MG/2 ML VIAL IVP SCH ×4 (02:27→13:08)
[2018-03-23 04:05] LABS: Hepatitis A Antibody IgM Nonreactive (Nonreactive); Hepatitis B Core IgM Nonreactive (Nonreactive); Hepatitis B Surface Antigen Nonreactive (Nonreactive); Hepatitis C Virus Antibody Nonreactive (Nonreactive)
[2018-03-23 05:11] LABS: Basophils % 0.3 %; Eosinophils # 0.2 K/mcL (0.0-0.6); Eosinophils % 1.4 %; Hematocrit 36.5 % (37.5-50.1); Hemoglobin 13.2 g/dL (12.9-16.9); Immature Granulocytes % 0.4 % (0-4); Lymphocytes # 2.1 K/mcL (0.6-4.6); Lymphocytes % 19.7 %; Mean Corpuscular HGB Conc 36.2 g/dL (31.6-35.5); Mean Corpuscular Hemoglobin 33.8 pg (28.0-33.3); Mean Corpuscular Volume 93.6 fL (83.0-100.0); Mean Platelet Volume 9.4 fL (9.4-12.4); Monocytes # 1.1 K/mcL (0.0-1.3); Monocytes % 10.1 %; Neutrophils # 7.4 K/mcL (1.6-8.9); Platelet Count 280 K/mcL (140-400); Red Cell Distribution Width 11.9 % (11.5-14.5); Segmented Neutrophils % 68.1 %
[2018-03-23 05:37] LABS: Alanine Aminotransferase 10 Units/L (7-52); Albumin 3.8 g/dL (3.5-5.7); Albumin/Globulin Ratio 1.7 (1.1-2.2); Alkaline Phosphatase 55 Units/L (34-104); Aspartate Amino Transferase 12 Units/L (13-39); BUN/Creatinine Ratio 13 (6-26); Bilirubin,Total 0.4 mg/dL (0.3-1.0); Blood Urea Nitrogen 9 mg/dL (6-20); Carbon Dioxide 26 mEq/L (23-29); Chloride 104 mEq/L (98-107); Globulin 2.3 g/dL (2.4-3.5); Glucose 97 mg/dL (70-105); Osmolality,Calculated 283 (280-300); Potassium 3.6 mEq/L (3.5-5.1); Sodium 137 mEq/L (136-145); Total Protein 6.1 g/dL (6.4-8.9); eGFR For African Americans > 60 (> 60); eGFR For Non-African Americans > 60 (> 60)
[2018-03-23] MEDS: *HR* Enoxaparin 40 MG/0.4 ML SYRINGE SQ SCH (06:25)
[2018-03-23] MEDS: Acetaminophen 325 MG TABLET PO PRN (06:35)
[2018-03-23] MEDS: Pantoprazole 40 MG VIAL IVP SCH (09:33)
[2018-03-23] MEDS: Nicotine 14 MG PATCH.TD24 TD SCH (09:33)
--- NOTE | 2018-03-23 11:34 | Discharge Summary ---
- NOTES TO OUTPATIENT PROVIDER Notes to Outpatient Provider: - Follow-up if still having rashes. - Pending labs: HIV, HSV, Syphilis labs. - Discussed marijuana-induced nausea/vomiting. Orders not resulted at time of discharge: Pending orders 03/21/18 11:12 RADHA IgG TRINH rflx IFA Routine HIV-1&2 Antibody & p24 Ag Routine HSV 1&2Ab IgG ReflexGlycopr G Routine VDRL Routine Viral hepatitis panel [Hepatitis Prof.(Routine A,B,C)] Routine 03/23/18 11:29 Drug Screen, Serum [Drug Screen 9 Reflex Conf Qnt] Routine Date of Encounter: 03/23/18 Time of Encounter: 11:30 - Discharge Diagnosis (1) Nausea and vomiting Priority: Primary Status: Acute Assessment and Plan: Patient was able to tolerate diet on 03/23. Likely marijuana-induced as he has tried a new strain of marijuana from a new dealer. Lyme titres tested negative. Qualifiers: Vomiting type: cyclical vomiting Vomiting Intractability: intractable Qualified Code(s): G43.A1 - Cyclical vomiting, intractable (2) Abdominal pain Priority: Secondary Status: Acute Qualifiers: Abdominal location: generalized Qualified Code(s): R10.84 - Generalized abdominal pain (3) Fever with chills Priority: Secondary Status: Acute (4) Suspected Lyme disease Priority: Secondary Status: Acute (5) Chest pain Priority: Secondary Status: Acute Qualifiers: Chest pain type: unspecified Qualified Code(s): R07.9 - Chest pain, unspecified (6) HTN (hypertension) Priority: Secondary Status: Chronic Qualifiers: Hypertension type: essential hypertension Qualified Code(s): I10 - Essential (primary) hypertension (7) Hx of Lyme disease Priority: Secondary Status: Resolved (8) DVT prophylaxis Priority: Secondary Status: Acute Hospital course: Mr. Bynum is a 32 year old male w/PMH of HTN, anxiety, depression, and hx of prescription drug abuse presents from the ED w/CC of abdominal pain, nausea, vomiting, fever, chills, muscle aches, headache, night sweats, and dizziness for the past two weeks that have become progressively worse. Pt. reports that [place] and has 10-20 tick bites on his back, shoulder, bilateral legs, and underside of his penis. No alleviating factors. PT. 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 Pt. denies recent drug use and states that is a recovering addict of prescription drug abuse and states that he cannot have any opioids or pain relievers other than Tylenol or Ibuprofen. Currently takes Vivitrol shots monthly. Pt. reports SOB, weakness, and fatigue but denies changes in vision, unusual bleeding, changes in vision, unusual rashes, cough, chest congestion, diarrhea, constipation, pre-syncope, or syncope. He was admitted for intractable n/v and intractable abdominal pain, and chest pain as well. He was treated with Rocephin emperically as initially thought this was contributing to symptoms. He was given supportive care with IV fluids and antiemetics. Patient did have noted rashes and a single vesicular lesion on his penis. Lyme total antibody levels came back negative after few days. Antibiotics were discontinued after negative labs. Patient continued to have nausea but was able to advance diet. Patient later admit that he smokes marijuana and recently changed strains from a new dealer. Patient likely having intractable pain and n/v from new marijuana. Diet was advanced and patient was discharged home in stable condition. Hepatitis levels came back negative. HSV, HIV, and syphilis labs are pending. - Time Spent with Patient Total time spent providing and/or coordinating discharge services: - Discharge Medications Prescriptions: Ondansetron HCl [Zofran] 4 mg PO Q8HR PRN #21 tab PRN Reason: Nausea And Vomiting Home Medications: Lisinopril [Zestril] 10 mg PO DAILY 03/20/18 [History] Naltrexone Microspheres [Vivitrol] 1 each IJ QMONTH 03/20/18 [History] Pantoprazole Sodium [Protonix] 40 mg PO DAILY 03/20/18 [History] Sertraline [Zoloft] 50 mg PO DAILY 03/20/18 [History] Nicotine Patch [Nicoderm] 14 mg TD DAILY patch.td24 03/23/18 [Rx] Ondansetron HCl [Zofran] 4 mg PO Q8HR PRN #21 tab 03/23/18 [Rx] Allergies/Adverse Reactions: 3 Allergy/AdvReac Type Severity Reaction Status Date / Time promethazine [From Phenergan] AdvReac Anxiety Verified 03/20/18 15:25 Date of admission: 03/20/18 18:57 Primary care physician: Eddie Duvall CNP Discharging clinician: Bill Sheppard - Constitutional Vitals: Temp Pulse Resp BP Pulse Ox 97.6 F 93 18 110/73 95 03/23/18 10:57 03/23/18 10:57 03/23/18 10:57 03/23/18 10:57 03/23/18 10:57 General appearance: Present: cooperative, A&O X 3, no acute distress, answers questions appropriately Exam: - Head Head exam: Present: atraumatic, normocephalic - Eye Eye exam: Present: PERRL, conjuntiva pink, sclera anicteric Pupils: Present: PERRL - Neck Neck exam general surgery: Present: supple, trachea midline. Absent: lymphadenopathy - Respiratory Respiratory exam: Present: CTAB. Absent: accessory muscle use, rales, rhonchi, wheezes - Cardiovascular Cardiovascular exam: Present: RRR, +S1, +S2. Absent: diastolic murmur, gallop, rubs, systolic murmur - GI/Abdominal GI/Abdominal exam: Present: normal bowel sounds, soft, no peritoneal signs. Absent: distended, tenderness - Additional comments: Single vesicular lesion on base of penis. No surrounding erythema - Extremities Exam Extremities exam: Present: warm, radial pulses palpable and symmetrical. Absent : calf tenderness, cyanotic, pedal edema - Neurological Exam Neurological exam: Present: CN II-XII intact, oriented X3, no focal deficits. Absent: pronater drift, facial droop, speech deficit - Skin Skin exam: Present: dry, intact - Patient Status Disposition: Home, Self-Care Condition: Good Functional capacity at discharge: independent ambulation Overall status at discharge: patient is back to baseline - Discharge Instructions Follow Up With: Eddei Duvall CNP [Primary Care Provider] - - Diet and Activity Activity: increase activity as tolerated Diet: low salt diet
[2018-03-23 11:37] VITALS: BP 129/89
--- NOTE | 2018-03-23 13:12 | Electrocardiograph Report ---
[address] [address] Test Date: 2018-03-20 Pat Name: Carter Bynum Department: 104 Room: 3A Gender: M [employer]: : [id number] Requested By: [id number] Order Number: [id number] Reading MD: Dariel Mota Measurements Intervals [place] Rate: 47 P: 75 RI: 138 QRS: 82 QRSD: 110 T: 59 QT: 458 QTc: 420 Interpretive Statements SINUS BRADYCARDIA Electronically Signed On 03-23-2018 9:00:11 EDT by Dariel Mota
[2018-03-23 16:42] LABS: HIV-1&2 Antibody & p24 Ag Nonreactive (Nonreactive)
[2018-03-25 18:57] LABS: Amphetamines NEGATIVE ng/mL (Cutoff 30); Barbiturates NEGATIVE ng/mL (Cutoff 75); Benzodiazepines NEGATIVE ng/mL (Cutoff 75); Cocaine NEGATIVE ng/mL (Cutoff 30); Methadone NEGATIVE ng/mL (Cutoff 40); Methamphetamines NEGATIVE ng/mL (Cutoff 30); Opiates NEGATIVE ng/mL (Cutoff 30); Phencyclidine NEGATIVE ng/mL (Cutoff 15)
[2018-03-26 07:25] LABS: ANA IgG by ELISA NONE DETECTED (None Detected)
[2018-03-26 07:26] LABS: HSV 2 Glycoprotein G IgG 0.14 IV (<=0.90)
[2018-03-26 07:27] LABS: Herpes Simplex IgG (I&II COMB) 9.35 IV
== END 2018-03-23 13:23 | disposition home or self-care (01) | DRG 54 ==
LOC: 3ANU 10:55 → EMEROO 10:55 → 3ANU 16:58
PROVIDERS: ADMIT Nurse Practitioner Family; ATTEND Nurse Practitioner Family

== ENCOUNTER 2021-03-17 14:25 | Inpatient (IN) ==
[2021-03-17] MEDS ORDERED: Isovue-370 500 ML BOTTLE IVP ONE (14:57)
[2021-03-17 15:23] LABS: Basophils % 0.6 %; Eosinophils # 0.2 K/mcL (0.0-0.6); Eosinophils % 3.7 %; Hematocrit 39.8 % (37.5-50.1); Hemoglobin 13.4 g/dL (12.9-16.9); Immature Granulocytes % 0.3 % (0-4); Lymphocytes # 2.2 K/mcL (0.6-4.6); Lymphocytes % 34.6 %; Mean Corpuscular HGB Conc 33.7 g/dL (31.6-35.5); Mean Corpuscular Hemoglobin 34.4 pg (28.0-33.3); Mean Corpuscular Volume 102.3 fL (83.0-100.0); Mean Platelet Volume 8.9 fL (9.4-12.4); Monocytes # 0.6 K/mcL (0.0-1.3); Monocytes % 9.9 %; Neutrophils # 3.3 K/mcL (1.6-8.9); Platelet Count 312 K/mcL (140-400); Red Blood Count 3.89 M/mcL (4.19-5.50); Red Cell Distribution Width 13.2 % (11.5-14.5); Segmented Neutrophils % 50.9 %; White Blood Count 6.5 K/mcL (4.3-11.1)
[2021-03-17 15:28] LABS: Acetaminophen < 10 mcg/mL (10-20); BUN/Creatinine Ratio 13 (6-26); Blood Urea Nitrogen 10 mg/dL (6-20); Calcium 9.3 mg/dL (8.6-10.3); Carbon Dioxide 27 mEq/L (23-29); Chloride 103 mEq/L (98-107); Ethanol 44 mg/dL (Less than 10); Glucose 78 mg/dL (70-105); Osmolality,Calculated 284 (280-300); Potassium 3.8 mEq/L (3.5-5.1); Salicylate < 2.5 mg/dL (15.0-30.0); Sodium 138 mEq/L (136-145); eGFR For African Americans > 60 (> 60); eGFR For Non-African Americans > 60 (> 60)
[2021-03-17 17:51] LABS: Troponin I < 0.03 ng/mL (< 0.04)
[2021-03-17 18:23] LABS: Bilirubin,Urine Negative (Negative); Blood,Urine Negative (Negative); Clarity,Urine Clear (Clear); Color,Urine Colorless (Yellow); Glucose,Urine (UA) Normal (Normal); Ketones,Urine Negative (Negative); Leukocyte Esterase,Urine Negative (Negative); Nitrite,Urine Negative (Negative); Protein,Urine Negative (Neg-Trace); Specific Gravity,Urine 1.015 (1.010-1.025); Urobilinogen,Urine Normal (Normal)
[2021-03-17 18:36] LABS: Amphetamine Screen,Urine Positive ng/mL (Cutoff=1000); Barbiturate Screen,Urine Positive ng/mL (Cutoff=200); Benzodiazepines Screen,Urine Positive ng/mL (Cutoff=200); Cannabinoid Screen,Urine Positive ng/mL (Cutoff = 50); Cocaine Screen,Urine Positive ng/mL (Cutoff= 300); Opiate Screen,Urine Negative ng/mL (Cutoff=300); Phencyclidine Screen,Urine Negative ng/mL (Cutoff=25)
[2021-03-17 19:48] LABS: Adenovirus Not Detected (Not Detect); Bordetella Pertussis Not Detected (Not Detect); Chlamydophila pneumoniae Not Detected (Not Detect); Coronavirus 229E Not Detected (Not Detect); Coronavirus HKU1 Not Detected (Not Detect); Coronavirus NL63 Not Detected (Not Detect); Coronavirus OC43 Not Detected (Not Detect); Human Metapneumovirus Not Detected (Not Detect); Human Rhinovirus/Enterovirus Not Detected (Not Detect); Influenza A Subtype 2009 H1 Not Detected (Not Detect); Influenza B Not Detected (Not Detect); Mycoplasma pneumoniae Not Detected (Not Detect); Parainfluenza Virus 1 Not Detected (Not Detect); Parainfluenza Virus 2 Not Detected (Not Detect); Parainfluenza Virus 3 Not Detected (Not Detect); Parainfluenza Virus 4 Not Detected (Not Detect); Respiratory Syncytial Virus Not Detected (Not Detect); SARS-CoV-2 Not Detected (Not Detect)
[2021-03-17] MEDS ORDERED: *HR* LORazepam 2 MG/ML VIAL IVP PRN ×2 (22:03)
[2021-03-17] MEDS ORDERED: Ondansetron 4 MG/2 ML VIAL IVP PRN (23:37)
[2021-03-17] MEDS ORDERED: Naloxone 0.4 MG/ML INJ IVP PRN (23:37)
[2021-03-17] MEDS: Thiamine (B-1) 100 MG, Folic Acid 1 MG, MVI, adult with vitamin K 10 ML in 0.9 % Sodi... IVPB SCH (23:58)
[2021-03-18 05:26] LABS: Hematocrit 39.7 % (37.5-50.1); Hemoglobin 13.6 g/dL (12.9-16.9); Mean Corpuscular HGB Conc 34.3 g/dL (31.6-35.5); Mean Corpuscular Hemoglobin 34.5 pg (28.0-33.3); Mean Corpuscular Volume 100.8 fL (83.0-100.0); Mean Platelet Volume 8.9 fL (9.4-12.4); Platelet Count 332 K/mcL (140-400); Red Blood Count 3.94 M/mcL (4.19-5.50); Red Cell Distribution Width 13.2 % (11.5-14.5); White Blood Count 8.1 K/mcL (4.3-11.1)
[2021-03-18 06:42] LABS: BUN/Creatinine Ratio 14 (6-26); Blood Urea Nitrogen 10 mg/dL (6-20); Calcium 8.8 mg/dL (8.6-10.3); Carbon Dioxide 25 mEq/L (23-29); Chloride 105 mEq/L (98-107); Glucose 84 mg/dL (70-105); Osmolality,Calculated 282 (280-300); Potassium 4.3 mEq/L (3.5-5.1); Sodium 137 mEq/L (136-145); eGFR For African Americans > 60 (> 60); eGFR For Non-African Americans > 60 (> 60)
[2021-03-18] MEDS: Acetaminophen 325 MG TABLET PO PRN (09:15)
[2021-03-18] MEDS ORDERED: Ringers Solution, Lactated 1,000 ML IVC ONE (10:34)
[2021-03-18] MEDS: Thiamine (B-1) 100 MG, Folic Acid 1 MG, MVI, adult with vitamin K 10 ML in 0.9 % Sodi... IVPB SCH (17:20)
[2021-03-18] MEDS: *HR* LORazepam 2 MG/ML VIAL IVP PRN (21:22)
[2021-03-19] MEDS: *HR* LORazepam 2 MG/ML VIAL IVP PRN ×2 (08:17→13:38)
[2021-03-19] MEDS ORDERED: lisinopriL 10 MG TABLET PO SCH (09:00)
[2021-03-19] MEDS ORDERED: Nicotine 21 MG PATCH.TD24 TD PRN (17:43)
[2021-03-19] MEDS ORDERED: *HR* LORazepam 1 MG TABLET PO PRN (17:55)
[2021-03-20] MEDS: PHENobarbitaL 32.4 MG TABLET PO SCH ×2 (16:54→20:39)
[2021-03-20 19:36] LABS: Basophils # 0.1 K/mcL (0.0-0.2); Basophils % 0.7 %; Eosinophils # 0.4 K/mcL (0.0-0.6); Eosinophils % 4.3 %; Immature Granulocytes % 0.3 % (0-4); Lymphocytes # 2.3 K/mcL (0.6-4.6); Lymphocytes % 25.4 %; Mean Corpuscular HGB Conc 34.1 g/dL (31.6-35.5); Mean Corpuscular Hemoglobin 34.3 pg (28.0-33.3); Mean Corpuscular Volume 100.7 fL (83.0-100.0); Mean Platelet Volume 8.6 fL (9.4-12.4); Monocytes # 0.9 K/mcL (0.0-1.3); Monocytes % 9.6 %; Neutrophils # 5.5 K/mcL (1.6-8.9); Platelet Count 396 K/mcL (140-400); Red Blood Count 4.37 M/mcL (4.19-5.50); Red Cell Distribution Width 13.1 % (11.5-14.5); Segmented Neutrophils % 59.7 %; White Blood Count 9.2 K/mcL (4.3-11.1)
[2021-03-20 20:01] LABS: Alanine Aminotransferase 12 Units/L (7-52); Albumin 4.1 g/dL (3.5-5.7); Albumin/Globulin Ratio 1.4 (1.1-2.2); Alkaline Phosphatase 75 Units/L (34-104); Aspartate Amino Transferase 14 Units/L (13-39); BUN/Creatinine Ratio 13 (6-26); Bilirubin,Total 0.1 mg/dL (0.3-1.0); Blood Urea Nitrogen 16 mg/dL (6-20); Calcium 9.3 mg/dL (8.6-10.3); Carbon Dioxide 25 mEq/L (23-29); Chloride 103 mEq/L (98-107); Glucose 90 mg/dL (70-105); Osmolality,Calculated 283 (280-300); Potassium 4.5 mEq/L (3.5-5.1); Sodium 136 mEq/L (136-145); Total Protein 7.1 g/dL (6.4-8.9); eGFR For African Americans > 60 (> 60); eGFR For Non-African Americans > 60 (> 60)
[2021-03-21] MEDS: Acetaminophen 325 MG TABLET PO PRN (04:17)
[2021-03-21] MEDS: PHENobarbitaL 32.4 MG TABLET PO SCH (07:42)
[2021-03-21 07:46] VITALS: BP 118/81
[2021-03-21] MEDS ORDERED: hydrOXYzine pamoate 25 MG CAPSULE PO PRN (12:08)
[2021-03-21] MEDS ORDERED: *HR* LORazepam 1 MG TABLET PO PRN (12:08)
[2021-03-21] MEDS ORDERED: Haloperidol Lactate 5 MG/ML VIAL IM PRN (12:08)
[2021-03-21] MEDS ORDERED: haloperidoL 5 MG TABLET PO PRN (12:08)
[2021-03-21] MEDS ORDERED: Acetaminophen 325 MG TABLET PO PRN (12:08)
[2021-03-21] MEDS ORDERED: *HR* LORazepam 2 MG/ML VIAL IM PRN (12:08)
[2021-03-21] MEDS ORDERED: traZODone 50 MG TABLET PO PRN (12:08)
[2021-03-21] MEDS ORDERED: MOM Conc 10 ML UD.LIQ PO PRN (12:08)
[2021-03-21] MEDS ORDERED: Nicotine 21 MG PATCH.TD24 TD SCH (12:15)
[2021-03-21] MEDS ORDERED: PHENobarbitaL 32.4 MG TABLET PO SCH (21:00)
[2021-03-22] MEDS ORDERED: lisinopriL 10 MG TABLET PO SCH (09:00)
== END 2021-03-21 10:49 | disposition home or self-care (01) | DRG 817 ==
LOC: 3ANU 14:25 → EMEROOARM 14:25 → SUATTDRO 23:26 → 3ANU 03-18 00:04
PROVIDERS: ADMIT Internal Medicine; ATTEND Student in an Organized Health Care Education/Training Program

== ENCOUNTER 2021-03-21 10:29 | Inpatient (IN) ==
[2021-03-21] MEDS ORDERED: *HR* LORazepam 1 MG TABLET PO PRN (13:17)
[2021-03-21] MEDS ORDERED: Haloperidol Lactate 5 MG/ML VIAL IM PRN (13:17)
[2021-03-21] MEDS ORDERED: traZODone 50 MG TABLET PO PRN (13:17)
[2021-03-21] MEDS ORDERED: hydrOXYzine pamoate 25 MG CAPSULE PO PRN (13:17)
[2021-03-21] MEDS ORDERED: MOM Conc 10 ML UD.LIQ PO PRN (13:17)
[2021-03-21] MEDS ORDERED: *HR* LORazepam 2 MG/ML VIAL IM PRN (13:17)
[2021-03-21] MEDS ORDERED: haloperidoL 5 MG TABLET PO PRN (13:17)
[2021-03-21] MEDS: Nicotine 21 MG PATCH.TD24 TD SCH (16:08)
[2021-03-21] MEDS: PHENobarbitaL 32.4 MG TABLET PO SCH (21:17)
[2021-03-22] MEDS: Nicotine 21 MG PATCH.TD24 TD SCH (09:27)
[2021-03-22] MEDS: PHENobarbitaL 32.4 MG TABLET PO SCH (09:27)
[2021-03-22 09:47] VITALS: BP 118/79
[2021-03-22] MEDS ORDERED: PHENobarbitaL 32.4 MG TABLET PO ONE (11:30)
== END 2021-03-22 12:00 | disposition home or self-care (01) | DRG 751 ==
LOC: 1ANU 10:29
PROVIDERS: ADMIT Psychiatry & Neurology Psychiatry; ATTEND Psychiatry & Neurology Psychiatry